=== PATIENT | female | born 1945 | race Caucasian/White ===

== ENCOUNTER 2016-03-28 08:57 | Day surgery (SDC) | payer MEDICARE, BC ==
[2016-03-28] VITALS (11 sets, daily range): BP systolic 131–163; BP diastolic 51–73; PULSE 58–70; RESP 16–28; Ht 167.6 cm; Wt 81.7 kg
[~2016-03-28] VITALS: Ht 167.6 cm; Wt 81.7 kg
[~2016-03-28 08:57] MED LIST: AMLO-147 PO; ASPI81TA3 PO; CHOL100062 PO; FOLI-49 PO; FURO20TA3 PO; GABA100C14 PO; LEVO500V2 PO; LISI10TA2 PO; PANT40TA4 PO; PIOG45TA6 PO; SEVE800T7 PO; SUCR1TAB56 PO
[2016-03-28 10:26] LABS: BASOPHILS % 0.7 % (0.0-2.0); EOSINOPHILS # 0.3 10^3/ul (0.0-0.5); EOSINOPHILS % 4.6 % (0.0-7.0); HEMATOCRIT 36.4 % (37.0-47.0); HEMOGLOBIN 12.1 g/dl (12.0-16.0); LYMPHOCYTES # 0.8 10^3/ul (0.8-2.9); LYMPHOCYTES % 13.7 % (15.0-51.0); MEAN CORPUSCULAR HEMOGLOBIN 31.7 pg (29.0-33.0); MEAN CORPUSCULAR HGB CONC 33.2 g/dl (32.0-37.0); MEAN CORPUSCULAR VOLUME 95.3 fl (82.0-101.0); MEAN PLATELET VOLUME 9.4 fl (7.4-10.4); MONOCYTE # 0.4 10^3/ul (0.3-0.9); MONOCYTES % 6.4 % (0.0-11.0); NEUTROPHIL # 4.4 10^3/ul (1.6-7.5); NEUTROPHILS % 74.6 % (39.0-77.0); PLATELET COUNT 206 10^3/UL (140-440); RED BLOOD COUNT 3.82 10^6/ul (4.20-5.40); RED CELL DISTRIBUTION WIDTH 15.2 % (11.5-14.5); UNCORRECTED WBC 5.8 10^3/ul (4.8-10.8); WHITE BLOOD COUNT 5.8 10^3/ul (4.8-10.8)
[2016-03-28 10:30] LABS: INR 0.94; PROTIME 12.6 Sec (12.2-14.2)
[2016-03-28 10:31] LABS: CONDITION 1; LH ANALYZER COMMENTS 1
[2016-03-28 10:45] LABS: CALCIUM 9.8 mg/dl (8.4-10.2); CREATININE 4.91 mg/dl (0.44-1.00); POTASSIUM 3.9 mmol/L (3.5-5.1)
[2016-03-28 10:54] LABS: PARTIAL THROMBOPLASTIN TIME 23.8 Sec (25.0-35.0)
[2016-03-28] MEDS ORDERED: HEPARIN 1000 UNITS/ML 10 ML INJ ONE (12:03)
[2016-03-28] MEDS ORDERED: MIDAZOLAM 1 MG/ML 2 ML INJ ONE (12:03)
[2016-03-28] MEDS ORDERED: LIDOCAINE 1% (MDV) 20 ML INJ ONE (12:03)
[2016-03-28] MEDS ORDERED: HEPARIN 1000 UNITS/NS (A-LINE) 1,000 ML ONE (12:03)
[2016-03-28] MEDS ORDERED: VERAPAMIL 5 MG INJ ONE (12:04)
[2016-03-28] MEDS ORDERED: NITROGLYCERIN (IC) 100 MCG/ML INJ ONE (12:04)
[2016-03-28] MEDS ORDERED: FENTAnyl 50 MCG/ML VIAL ONE (12:04)
[2016-03-28] MEDS ORDERED: IODIXANOL LOCM 100 ML BTL ONE (12:12)
[2016-03-28] MEDS ORDERED: ADENOSINE 90 MG in SOD CHLORIDE 0.9% 90 ML IV SCH (13:00)
--- NOTE | 2016-03-28 14:05 | PDOCDIS ---
Discharge Instructions CONDITION Patient Condition: Good HOME CARE INSTRUCTIONS: Diet Instructions: Low Fat /Cholesterol ACTIVITY: Activity Restrictions: Avoid heavy lifting Avoid Heavy Housework Activity Restrictions Comment: No driving x 1 day, no lifting more then 5 pounds with left arm x 3 days Gregory Arauz DO Mar 28, 2016 14:05
[2016-03-28] MEDS ORDERED: ACETAMINOPHEN 325 MG TAB PO PRN (14:30)
[2016-03-28] MEDS ORDERED: LIDOCAINE 5% PATCH TRANSDERM ONE (16:30)
--- NOTE | 2016-03-28 18:49 | CARRPT ---
DATE OF PROCEDURE: 03/28/2016 PROCEDURES: 1. Left heart catheterization. 2. Right and left coronary angiogram. 3. Interpretation and supervision of coronary angiogram. 4. Left ventricular pressure measurements. 5. Fractional flow reserve of the mid left anterior descending. 6. Distal abdominal aortogram and bilateral aortoiliac angiogram. INDICATIONS: This patient presents for cardiac catheterization as well as abdominal aortogram secon emily to preoperative for kidney transplant. FINDINGS: HEMODYNAMICS: 1. LV pressure was 127/-3 with EDP of 17. 2. Aortic was 126/49. 3. FFR was 0.81. CORONARY ANATOMY: 1. RCA is a medium caliber vessel and is dominant. There is an ostial 20% stenosis and a distal 20 % diffuse stenosis. 2. Left main is a large caliber vessel with no significant disease. 3. Circumflex is a medium caliber vessel. There is a mid 20% stenosis and a distal 10% stenosis. 4. LAD is a medium caliber vessel. Proximally there is diffuse calcification with 30% stenosis. A fter the bifurcation of a medium caliber diagonal, the mid LAD has a 50% to 60% stenosis and distal 10% stenosis. 5. The mid aorta in the abdomen demonstrates no significant disease. DESCRIPTION OF PROCEDURE: There is no evidence of severe stenosis in the abdominal aorta, the bilat eral iliacs as well as bilateral common femoral arteries. The patient was brought to the laboratory miller a fter informed consent. The patient was prepped and draped as per protocol. Right radial artery acc ess was obtained and a 5/6 Armenian sheath was placed in the right radial artery. This 5-Armenian JR4 c atheter was used to enter the left ventricle. Pressure measurements were obtained as well as pullba ck. The RCA angiogram was performed. We next used a 5-Armenian JL3.5 diagnostic catheter and left ma in angiogram was performed. Given the moderate disease noted in the mid LAD, decided to proceed wit h FFR. Heparin was used for anticoagulation. We used a 6-Armenian XB 3.5 guide catheter. We engaged the left main. Next, used a [facility] FFR wire to cross area of stenosis. Adenosine was given in travenously. The lowest reading was 0.81. Afterwards we next used a 6-Armenian pigtail to go in the descending aorta. Then abdominal aortogram as well as aortoiliac angiogram with a 6-Armenian pigtail. There were no immediate complications. All wires and catheters were removed. DIAGNOSIS: Coronary artery disease, moderate. COMPLICATIONS: No significant aortoiliac disease. COMPLICATIONS: None. ESTIMATED BLOOD LOSS: Minimal. RECOMMENDATIONS: Aggressive medical management. The patient is asymptomatic in regards to coronary artery disease. No need for coronary intervention at the current time. Dictated By: NADEEM FERRELL/VASILE Conf#: [id number] DID#: [id number]
== END 2016-03-28 17:30 | disposition home or self-care (01) ==
LOC: SDS 08:57
PROVIDERS: ATTEND Internal Medicine Cardiovascular Disease
DX: I25.10 Atherosclerotic heart disease of native coronary artery without angina pectoris (principal)
CPT/HCPCS: 75625; 80048; 82962; 85025; 85610; 85730; 93458; 93571; C1769; C1887; J0153; J1644; J2250; J3010; Q9967

== ENCOUNTER 2016-05-20 07:26 | Day surgery (SDC) | payer MEDICARE, BC ==
[2016-05-20] VITALS (12 sets, daily range): BP systolic 138–167; BP diastolic 62–84; PULSE 58–80; RESP 15–22; Ht 167.6 cm; Wt 80.1 kg
[~2016-05-20] VITALS: Ht 167.6 cm; Wt 80.1 kg
[2016-05-20] MEDS ORDERED: LIDOCAINE 1% (MPF) 30 ML INJ ONE ×2 (09:27→10:21)
[2016-05-20] MEDS ORDERED: GELATIN SIZE 100 SPONGE ONE (09:27)
[2016-05-20] MEDS ORDERED: HEPARIN 1000 UNITS/ML 10 ML INJ ONE ×2 (09:27→11:07)
[2016-05-20] MEDS ORDERED: THROMBIN 5000 UNIT VIAL ONE (09:28)
--- NOTE | 2016-05-20 09:33 | RADRPT ---
PROCEDURE: XR Chest. CLINICAL INDICATION: Preoperative. TECHNIQUE: Single frontal view. COMPARISON: 01/28/2016. FINDINGS: There is a tunneled right internal jugular vein dialysis catheter with the tip in the upper right at rium. There is mild atelectasis at the lung bases. The lungs are otherwise clear. The heart size is normal. There is calcification in the aorta consistent with atherosclerosis. There is no pleural effusion. There is no pneumothorax. IMPRESSION: 1. Dialysis catheter in satisfactory position. 2. Mild atelectasis at the lung bases. 3. Atherosclerosis. RPTAT: QQ .Diego Serrano MD, MD Date Time Electronically viewed and signed by .Diego Serrano MD, on 05/20/2016 09:33 .R/
[2016-05-20 09:35] LABS: ADD SCAN DIFF NO
[2016-05-20 09:39] LABS: BASOPHIL # 0.1 10^3/ul (0.0-0.1); EOSINOPHILS # 0.3 10^3/ul (0.0-0.5); EOSINOPHILS % 5.9 % (0.0-7.0); HEMATOCRIT 35.3 % (37.0-47.0); HEMOGLOBIN 10.7 g/dl (12.0-16.0); LYMPHOCYTES # 0.9 10^3/ul (0.8-2.9); LYMPHOCYTES % 16.1 % (15.0-51.0); MEAN CORPUSCULAR HEMOGLOBIN 30.1 pg (29.0-33.0); MEAN CORPUSCULAR HGB CONC 30.3 g/dl (32.0-37.0); MEAN CORPUSCULAR VOLUME 99.4 fl (82.0-101.0); MEAN PLATELET VOLUME 11.1 fl (7.4-10.4); MONOCYTE # 0.6 10^3/ul (0.3-0.9); MONOCYTES % 9.7 % (0.0-11.0); NEUTROPHIL # 3.9 10^3/ul (1.6-7.5); PLATELET COUNT 176 10^3/UL (140-415); RED BLOOD COUNT 3.55 10^6/ul (4.20-5.40); RED CELL DISTRIBUTION WIDTH 13.3 % (11.5-14.5); WHITE BLOOD COUNT 5.8 10^3/ul (4.8-10.8)
[2016-05-20 09:49] LABS: INR 0.93; PROTIME 12.5 Sec (12.2-14.2)
[2016-05-20 09:50] LABS: PARTIAL THROMBOPLASTIN TIME 28.7 Sec (25.0-35.0)
[2016-05-20 09:52] LABS: ALBUMIN 3.4 g/dl (3.3-4.9); ALBUMIN/GLOBULIN RATIO 1.21; TOTAL PROTEIN 6.2 g/dl (6.1-8.1)
[2016-05-20 09:53] LABS: POTASSIUM 4.4 mmol/L (3.5-5.1)
[2016-05-20] MEDS ORDERED: SUCCINYLCHOLINE CHLORIDE 100 MG/5 ML SYG IV ONE (09:53)
[2016-05-20] MEDS ORDERED: FENTAnyl 50 MCG/ML VIAL ONE (09:53)
[2016-05-20] MEDS ORDERED: ONDANSETRON 4 MG INJ ONE (09:53)
[2016-05-20] MEDS ORDERED: ROCURONIUM 50 MG INJ ONE (09:53)
[2016-05-20] MEDS ORDERED: PROPOFOL 20 ML ONE (09:53)
[2016-05-20] MEDS ORDERED: METOCLOPRAMIDE 10 MG INJ ONE (09:54)
[2016-05-20 09:55] LABS: CALCIUM 9.7 mg/dl (8.4-10.2); CREATININE 3.85 mg/dl (0.44-1.00)
[2016-05-20] MEDS ORDERED: CEFAZOLIN 1 GM INJ ONE (09:57)
[2016-05-20] MEDS ORDERED: FENTAnyl 50 MCG/ML VIAL IV PRN ×2 (11:00)
[2016-05-20] MEDS ORDERED: MEPERIDINE 25 MG INJ IV PRN (11:00)
[2016-05-20] MEDS ORDERED: ONDANSETRON 4 MG INJ IV PRN (11:00)
[2016-05-20] MEDS ORDERED: LABETALOL HCL 20MG INJ IV PRN (11:00)
[2016-05-20] MEDS ORDERED: hydrALAzine 20 MG INJ IV PRN (11:00)
[2016-05-20] MEDS ORDERED: HYDROmorphONE (0.2 MG/ML) 10ML SYG IV PRN ×3 (11:00)
--- NOTE | 2016-05-20 21:02 | RADRPT ---
Vent Rate: 53 bpm RR Interval: 0 msec MD Interval: 186 msec QRS Duration: 82 msec QT Interval: 428 msec QTC Interval: 401 msec P-R-T [place]: 30 - 26 - 29 degrees Sinus bradycardia Low voltage QRS Borderline ECG Electronically Signed By: Rustam Salter [id number]
--- NOTE | 2016-05-20 21:20 | OPR ---
DATE OF OPERATION: PREOPERATIVE DIAGNOSIS: Renal failure. POSTOPERATIVE DIAGNOSIS: Renal failure. OPERATION PERFORMED: Left arm AV fistula. SURGEON: An Pardo MD ANESTHESIA: General. CONSENT: Risks, benefits, complications, alternative therapies explained to the patient and the valerie reina, consent obtained. OPERATIVE TECHNIQUE: The patient was placed in supine position, prepped and draped in usual sterile fashion. I made a 4 cm incision in left arm just distal to the antecubital fossa. Incision was ta nai down to subcutaneous tissue which was then opened using electrocautery. The basilic vein and th e brachial artery were identified. Vesseloops were passed around it. The basilic vein was then tra nsected distally and anastomosed to the brachial artery in an end-to-side fashion after giving the p atient 5000 units of IV heparin. The wound was then irrigated and closed in 2 layers of 3-0 Vicryl suture in running and subcuticular skin closure. The patient had a strong thrill and a bruit over t he newly constructed graft. No signs of ischemia. Tolerated procedure well. Dictated By: AN PARDO MD FM/NTS Conf#: [id number] DID#: [id number] CC: AN PARDO MD;*EndCC*
== END 2016-05-20 13:00 | disposition home or self-care (01) ==
LOC: SDS 07:26
PROVIDERS: ATTEND Thoracic Surgery (Cardiothoracic Vascular Surgery)
DX: E11.22 Type 2 diabetes mellitus with diabetic chronic kidney disease (principal); I12.0 Hypertensive chronic kidney disease with stage 5 chronic kidney disease or end stage renal disease; N18.6 End stage renal disease
CPT/HCPCS: 36821; 71010; 80053; 82962; 85025; 85610; 85730; 93005; J0330; J0690; J1644; J2405; J2765; J3010

== ENCOUNTER 2016-12-20 10:29 | Day surgery (SDC) | payer MEDICARE, BC ==
[~2016-12-20] VITALS: Ht 167.6 cm; Wt 78.0 kg
[2016-12-20] VITALS (9 sets, daily range): BP systolic 119–141; BP diastolic 48–72; PULSE 65–77; RESP 13–25; Ht 167.6 cm; Wt 78.0 kg
[~2016-12-20 10:29] MED LIST changes: +CLINDAMYCIN 600 MG/50 ML D5W IVPB IVPB ONE
[2016-12-20] MEDS ORDERED: LEVO50TA71 PO (11:38)
[2016-12-20] MEDS ORDERED: BUPIVACAINE 0.25% (MPF) 30 ML INJ ONE (12:01)
[2016-12-20] MEDS ORDERED: LIDOCAINE 1% (MPF) 30 ML INJ ONE (12:01)
[2016-12-20] MEDS ORDERED: GELATIN SIZE 100 SPONGE ONE (12:01)
[2016-12-20] MEDS ORDERED: HEPARIN 1000 UNITS/ML 10 ML INJ ONE ×2 (12:02→13:50)
[2016-12-20] MEDS ORDERED: POLYMYXIN/BACITRACIN 1L IRRIG ONE (12:02)
[2016-12-20] MEDS ORDERED: THROMBIN 5000 UNIT VIAL ONE (12:02)
--- NOTE | 2016-12-20 12:09 | RADRPT ---
PROCEDURE: XR Chest. CLINICAL INDICATION: Shortness of breath TECHNIQUE: Single portable view of the chest was obtained COMPARISON: January 28, 2016 FINDINGS: The trachea is midline. The cardiac silhouette and pulmonary vascularity are within normal limits. T he lungs are clear. The costophrenic angles are sharp. A right sided PermCath is noted with distal t ip in the SVC. Atherosclerotic calcification of the aortic knob is noted. IMPRESSION: 1. Right sided PermCath in satisfactory position. 2. Atherosclerosis of the aorta. No acute cardiopulmonary disease. No change since prior study. RPTAT: AAPP Physician Samm Date Time Electronically viewed and signed by Mallorie Hernandez Physician on 12/20/2016 12:08 JL/
[2016-12-20 12:16] LABS: BASOPHIL # 0.1 10^3/ul (0.0-0.1); BASOPHILS % 1.1 % (0.0-2.0); EOSINOPHILS # 0.1 10^3/ul (0.0-0.5); EOSINOPHILS % 2.1 % (0.0-7.0); HEMATOCRIT 30.9 % (37.0-47.0); HEMOGLOBIN 9.2 g/dl (12.0-16.0); LYMPHOCYTES # 0.7 10^3/ul (0.8-2.9); MEAN CORPUSCULAR HEMOGLOBIN 30.8 pg (29.0-33.0); MEAN CORPUSCULAR HGB CONC 29.8 g/dl (32.0-37.0); MEAN CORPUSCULAR VOLUME 103.3 fl (82.0-101.0); MEAN PLATELET VOLUME 9.7 fl (7.4-10.4); MONOCYTE # 0.4 10^3/ul (0.3-0.9); MONOCYTES % 7.9 % (0.0-11.0); NEUTROPHIL # 3.5 10^3/ul (1.6-7.5); NEUTROPHILS % 74.5 % (39.0-77.0); PLATELET COUNT 238 10^3/UL (140-415); RED BLOOD COUNT 2.99 10^6/ul (4.20-5.40); RED CELL DISTRIBUTION WIDTH 16.1 % (11.5-14.5); WHITE BLOOD COUNT 4.7 10^3/ul (4.8-10.8)
[2016-12-20 12:19] LABS: HOLD TRANSMISSIONS 1
[2016-12-20] MEDS ORDERED: ROPIVACAINE 0.5 % 30 ML VIAL ONE (12:27)
[2016-12-20] MEDS ORDERED: MIDAZOLAM 1 MG/ML 2 ML INJ ONE (12:27)
[2016-12-20] MEDS ORDERED: FENTAnyl 50 MCG/ML VIAL ONE (12:27)
[2016-12-20 12:36] LABS: INR 0.93; PROTIME 12.5 Sec (12.2-14.2)
[2016-12-20 12:37] LABS: PARTIAL THROMBOPLASTIN TIME 27.3 Sec (25.0-35.0)
[2016-12-20 12:41] LABS: ADD UMIC YES; UR ASCORBIC ACID NEGATIVE (NEGATIVE); UR BACTERIA FEW /HPF (NONE SEEN); UR BILIRUBIN (Dip) NEGATIVE (NEGATIVE); UR BLOOD (Dip) 1+ mg/dL (NEGATIVE); UR CLARITY CLOUDY (CLEAR); UR COLOR YELLOW (YELLOW); UR GLUCOSE (Dip) NEGATIVE (NEGATIVE); UR KETONES (Dip) NEGATIVE (NEGATIVE); UR LEUKOCYTE ESTERASE (Dip) 3+ Leu/ul (NEGATIVE); UR NITRITE (Dip) NEGATIVE (NEGATIVE); UR RBC 10 /HPF (0-5); UR SPECIFIC GRAVITY (Dip) 1.004 (1.003-1.030); UR SQUAMOUS EPITHELIAL CELL FEW /HPF (FEW); UR TOTAL PROTEIN (Dip) 1+ mg/dl (NEGATIVE); UR UROBILINOGEN (Dip) NEGATIVE (NEGATIVE)
[2016-12-20 12:50] LABS: CALCIUM 9.5 mg/dl (8.4-10.2); CREATININE 2.64 mg/dl (0.44-1.00); POTASSIUM 4.7 mmol/L (3.5-5.1)
[2016-12-20] MEDS ORDERED: METOCLOPRAMIDE 10 MG INJ IV PRN ×2 (13:00)
[2016-12-20] MEDS ORDERED: DIPHENHYDRAMINE 50 MG INJ IV PRN ×2 (13:00)
[2016-12-20] MEDS ORDERED: MEPERIDINE 25 MG INJ IV PRN ×2 (13:00)
[2016-12-20] MEDS ORDERED: ONDANSETRON 4 MG INJ IV PRN ×2 (13:00)
[2016-12-20] MEDS ORDERED: morphine (1 MG/ML) 10ML SYRINGE IV PRN ×6 (13:00)
[2016-12-20] MEDS ORDERED: OXYCODONE/ACETAMINOPHEN (5/325) TAB PO PRN ×4 (13:00)
[2016-12-20] MEDS ORDERED: EPHEDrine SULFATE 50 MG/5 ML SYG IV PRN ×2 (13:00)
[2016-12-20] MEDS ORDERED: LABETALOL HCL 20MG INJ IV PRN ×2 (13:00)
[2016-12-20] MEDS ORDERED: KETOROLAC 30 MG INJ IV PRN ×2 (13:00)
[2016-12-20] MEDS ORDERED: MIDAZOLAM 1 MG/ML 2 ML INJ IV PRN ×2 (13:00)
[2016-12-20] MEDS ORDERED: hydrALAzine 20 MG INJ IV PRN ×2 (13:00)
[2016-12-20] MEDS ORDERED: LIDOCAINE 2% (SDV) 5 ML INJ ONE (14:16)
[2016-12-20] MEDS ORDERED: PROPOFOL 100 ML ONE (14:16)
--- NOTE | 2016-12-20 14:26 | OPR ---
Date/Time of Note Date/Time of Note DATE: 12/20/16 TIME: 14:24 Operative Report Procedure Date: Dec 20, 2016 Preoperative Diagnosis ESRD Postoperative Diagnosis same Surgeon see signature line Electronics Assembler none Anesthesia Type: other Estimated Blood Loss: minimal Transfusion none Specimen no Grafts/Implants none Complications none Procedure Description Dictated AN ROSADO MD Dec 20, 2016 14:26
--- NOTE | 2016-12-20 21:50 | RADRPT ---
Vent Rate: 61 bpm RR Interval: 0 msec CA Interval: 180 msec QRS Duration: 78 msec QT Interval: 412 msec QTC Interval: 414 msec P-R-T [place]: 20 - 20 - 19 degrees Normal sinus rhythm Normal ECG Electronically Signed By: Gregory Arauz [id number]
--- NOTE | 2016-12-20 22:14 | OPR ---
DATE OF OPERATION: PREOPERATIVE DIAGNOSIS: End-stage renal disease. POSTOPERATIVE DIAGNOSIS: End-stage renal disease. PROCEDURE: Left arm arteriovenous fistula, basilic vein transposition. SURGEON: An Pardo MD ANESTHESIA: Block. OPERATIVE TECHNIQUE: The patient was placed in supine position, prepped and draped in usual sterile fashion. Timeout was called. I made two 8 cm incisions in the medial aspect of the left arm. Inc ision was taken down to subcutaneous tissue. Basilic vein was identified. All of the tributaries w ere transected and ligated using 4-0 silk sutures. It was then transected at the brachial artery an astomosis in a lateral subcutaneous fashion and reanastomosed back in an end-to-end fashion, 6 -0 Prolene continuous suture technique. All wounds were then irrigated and closed in 2 layers of 3- 0 Vicryl suture in running and subcuticular skin closure. The patient tolerated the procedure well. Dictated By: AN FITCH/VASILE Conf#: [id number] DID#: [id number]
== END 2016-12-20 16:24 | disposition home or self-care (01) ==
LOC: SDS 10:29
PROVIDERS: ATTEND Thoracic Surgery (Cardiothoracic Vascular Surgery)
DX: Z45.2 Encounter for adjustment and management of vascular access device (principal); N18.6 End stage renal disease; I12.0 Hypertensive chronic kidney disease with stage 5 chronic kidney disease or end stage renal disease; E11.22 Type 2 diabetes mellitus with diabetic chronic kidney disease
CPT/HCPCS: 36819; 71010; 80048; 81001; 82962; 85025; 85610; 85730; 93005; C1725; J1644; J2250; J2795; J3010

== ENCOUNTER 2017-01-02 21:18 | Observation (INO) | payer MEDICARE, BC ==
[~2017-01-02] VITALS: Ht 167.6 cm; Wt 73.4 kg
[~2017-01-02 21:18] MED LIST changes: -CLINDAMYCIN 600 MG/50 ML D5W IVPB IVPB ONE; -LEVO500V2 PO; +LEVO50TA71 PO
[2017-01-03 02:59] LABS: BASOPHILS % 0.6 % (0.0-2.0); EOSINOPHILS # 0.1 10^3/ul (0.0-0.5); EOSINOPHILS % 1.7 % (0.0-7.0); HEMATOCRIT 32.5 % (37.0-47.0); HEMOGLOBIN 9.7 g/dl (12.0-16.0); LYMPHOCYTES # 0.8 10^3/ul (0.8-2.9); LYMPHOCYTES % 11.7 % (15.0-51.0); MEAN CORPUSCULAR HEMOGLOBIN 31.2 pg (29.0-33.0); MEAN CORPUSCULAR HGB CONC 29.8 g/dl (32.0-37.0); MEAN CORPUSCULAR VOLUME 104.5 fl (82.0-101.0); MEAN PLATELET VOLUME 9.5 fl (7.4-10.4); MONOCYTE # 0.5 10^3/ul (0.3-0.9); MONOCYTES % 6.4 % (0.0-11.0); NEUTROPHIL # 5.7 10^3/ul (1.6-7.5); NEUTROPHILS % 78.8 % (39.0-77.0); PLATELET COUNT 361 10^3/UL (140-415); RED BLOOD COUNT 3.11 10^6/ul (4.20-5.40); RED CELL DISTRIBUTION WIDTH 16.2 % (11.5-14.5); WHITE BLOOD COUNT 7.2 10^3/ul (4.8-10.8)
[2017-01-03 03:20] LABS: INR 0.97; PROTIME 12.9 Sec (12.2-14.2)
[2017-01-03 03:23] LABS: CALCIUM 9.5 mg/dl (8.4-10.2); CREATININE 2.03 mg/dl (0.44-1.00); POTASSIUM 4.4 mmol/L (3.5-5.1)
[2017-01-03 04:02] LABS: PARTIAL THROMBOPLASTIN TIME 28.6 Sec (25.0-35.0)
[2017-01-03] MEDS ORDERED: ACETAMINOPHEN 325 MG TAB ONE (05:57)
[2017-01-03] MEDS ORDERED: ACETAMINOPHEN 325 MG TAB PO ONE (06:00)
[2017-01-03] MEDS ORDERED: morphine 4 MG/ML VIAL IV STA (06:18)
[2017-01-03 11:00] VITALS: TEMP 98
[2017-01-03 11:30] VITALS: Ht 167.6 cm; Wt 73.4 kg
[2017-01-03 11:32] VITALS: BP 133/61; PULSE 66; RESP 18
[2017-01-03] MEDS: AMLODIPINE 10 MG TAB PO SCH (14:00)
[2017-01-03] MEDS: FUROSEMIDE 20 MG TAB PO SCH (14:00)
[2017-01-03] MEDS ORDERED: HYDROCODONE/APAP (5/325) TAB PO PRN (14:00)
[2017-01-03] MEDS ORDERED: GLUCOSE GEL 15 GRAM TUBE PO PRN ×4 (14:30→17:30)
[2017-01-03] MEDS ORDERED: DEXTROSE 50% 50 ML SYRINGE IV PRN ×4 (14:30→17:30)
[2017-01-03] MEDS ORDERED: GLUCOSE GEL 15 GRAM TUBE BUCCAL PRN ×2 (14:30→17:30)
[2017-01-03] MEDS ORDERED: GLUCAGON 1 MG INJ IM PRN ×2 (14:30→17:30)
[2017-01-03 17:00] VITALS: BP 137/60; PULSE 75; RESP 18
[2017-01-03] MEDS: SUCRALFATE 1 GM TAB PO SCH ×2 (17:41→23:22)
[2017-01-03] MEDS: SEVELAMER CARBONATE 0.8 GM PKT PO SCH (17:41)
[2017-01-03] MEDS: ACCU-CHEK XX SCH ×2 (17:41→23:24)
[2017-01-03] MEDS: INSULIN ASPART [NOVOLOG] 3 ML PEN SC SCH ×2 (17:49→23:24)
--- NOTE | 2017-01-03 18:24 | QN ---
Documentation Comment [id number] CAROL SMART MD Jan 03, 2017 18:24
[2017-01-03] MEDS ORDERED: ACETAMINOPHEN 325 MG TAB PO PRN (18:30)
[2017-01-03] MEDS ORDERED: DOCUSATE SODIUM 100 MG CAP PO PRN (18:30)
[2017-01-03] MEDS ORDERED: ONDANSETRON 4 MG INJ IV PRN (18:30)
[2017-01-03] MEDS ORDERED: BISACODYL (EC) 5 MG TAB PO PRN (18:30)
[2017-01-03] MEDS ORDERED: NACL 0.9% 3 ML SYG IV SCH (18:30)
--- NOTE | 2017-01-03 19:37 | HP ---
DATE OF ADMISSION: 01/03/2017 HISTORY OF PRESENT ILLNESS: Chantelle Mead is a 71-year-old female. The patient has a left arm arteriovenous fistula, basilic vein transposition done. The patient noted to have bleeding from the AV fistula site and was sent in from the dialysis center. The patient has also pain and swelling of the left upper extremity. Dr. Pardo has been paged to see Mrs. Chantelle Mead in consultation. The patient also underwent hemodialysis at the dialysis center. PAST MEDICAL HISTORY: Positive for ESRD, hypertension, diabetes mellitus, diabetic nephropathy, retinopathy, neuropathy. The patient has a left arm AV fistula done. The patient's other past medical history includes left heart cath on 03/28/2016, right and left coronary angiogram, interrogation and supervision of coronary angiogram, left ventricular pressure measurement. The patient has RCA that is a medium caliber vessel and is dominant. There is ostial 20% stenosis and distal 20% diffuse stenosis. Left main is a large caliber vessel with no significant disease. Circumflex is a medium caliber vessel with mid 20% stenosis and distal 10% stenosis. LAD is a medium caliber vessel. Proximally, there is diffuse calcification with 30% stenosis. Mid LAD has 50% to 60% stenosis and distal 10% stenosis. The patient has a history of ligation of the left arm AV fistula. The patient also has had left forearm cephalic vein fistula placement in the past. The patient has a history of anemia. The patient has a history of dyslipidemia, history of gastric bypass surgery, history of lower extremity diabetic neuropathy. ALLERGIES: 1. PENICILLIN. 2. SULFA. 3. ROFECOXIB. SOCIAL HISTORY: Negative. MEDICATION HISTORY: The patient's home medicines have been: 1. Amlodipine. 2. Aspirin. 3. Vitamin D3. 4. Folic acid. 5. Lasix. 6. Gabapentin. 7. Levothyroxine. 8. Lisinopril. 9. Protonix. 10. Actos. 11. Renvela. 12. Carafate. REVIEW OF SYSTEMS: HEENT: Unremarkable. RESPIRATORY: Unremarkable. CARDIOVASCULAR: Unremarkable. ABDOMEN: Unremarkable. EXTREMITIES: As mentioned above. CENTRAL NERVOUS SYSTEM: Unremarkable. PHYSICAL EXAMINATION: GENERAL: The patient is awake and alert. VITAL SIGNS: Pulse 72, blood pressure 130/70. HEENT: Head is atraumatic, normocephalic. Pupils equal, reactive to light. NECK: Supple. There is no JVD. LUNGS: Clear. CARDIOVASCULAR: S1, S2 normal. ABDOMEN: Soft, nontender. Bowel sounds present. No palpable mass or hepatosplenomegaly. No guarding, rebound tenderness. EXTREMITIES: No cyanosis, clubbing. Edema positive lower extremity. AV fistula in left upper extremity is working fine with edema of the left upper extremity, and the patient has a dressing noted on the left upper extremity and no active bleeding noted. LABORATORY DATA: Hematocrit 32.5. The patient's sodium is 141, potassium 4.4. IMPRESSION: 1. Arteriovenous fistula bleeding, stopped. 2. End-stage renal disease. 3. Diabetes mellitus. 4. The patient with anemia. 5. Arteriovenous fistula, status post left arm arteriovenous fistula basilic vein transposition. PLAN: Obtain vascular surgical consultation. Continue home medications. Hemodialysis in the morning. Bleeding: The patient will have DDAVP. Aspirin is going to be on hold for the time being. Dictated By: CAROL SMART MD BS/NTS Conf#: [id number] DID#: [id number] CC: CAROL SMART MD;*EndCC* MTDD
--- NOTE | 2017-01-03 20:38 | CONS ---
DATE OF ADMISSION: 01/03/2017 DATE OF CONSULTATION: 01/03/2017 REASON FOR CONSULTATION: Evaluation of bleeding left arm. HISTORY OF PRESENT ILLNESS: This is a patient known to me. A 71-year-old female currently on dialy sis per a catheter. Patient has had a recent left arm arteriovenous fistula placement and was found to have bleeding from the medial aspect of the fistula, admitted through the emergency room. So fa r the dressing has been seeping with some serosanguineous fluid which does not appear to be purulent . Her hemoglobin is 7. Her previous hemoglobin 2 weeks ago was 9.2. PAST MEDICAL HISTORY: Significant for hypertension, hyperlipidemia, end-stage renal disease. ALLERGIES: 1. PENICILLIN. 2. SULFA. MEDICATIONS: List reviewed. REVIEW OF SYSTEMS: GASTROINTESTINAL: No upper or lower GI bleeding, nausea, vomiting, constipation, diarrhea. GENITOURINARY: No hematuria or dysuria. SKIN: No skin changes, rashes, or moles. PHYSICAL EXAMINATION: VITAL SIGNS: Blood pressure is 137/60, pulse 75, respirations 18, saturations 97% on room air, temp erature is 98. CARDIOVASCULAR: Normal S1, S2. No murmurs, gallops or rubs. LUNGS: Clear. ABDOMEN: Soft. EXTREMITIES: Warm. Left arm is examined. Fistula is intact with palpable thrill and a bruit. No signs of active bleeding, but some oozing from the medial aspect of the fistula. IMPRESSION: Left arm bleeding. RECOMMENDATIONS: We will proceed with exploration of the wound, control of bleeding. Discussed wit h the patient. All questions answered. Dictated By: AN ROSADO MD FM/VASILE Conf#: [id number] DID#: [id number] CC: CAROL SMART MD;*EndCC*
[2017-01-03] MEDS ORDERED: PANTOPRAZOLE (EC) 40 MG TAB PO SCH (21:00)
[2017-01-03] MEDS: GABAPENTIN 100 MG CAP PO SCH (23:22)
[2017-01-03 23:45] VITALS: BP 124/56; PULSE 81; RESP 18
[2017-01-04] VITALS (28 sets, daily range): BP systolic 108–158; BP diastolic 37–72; PULSE 60–78; RESP 10–32
[2017-01-04] MEDS ORDERED: ACCU-CHEK XX SCH ×3 (02:00)
[2017-01-04] MEDS: ACCU-CHEK XX SCH ×5 (03:26→21:00)
[2017-01-04 05:59] LABS: BASOPHILS % 0.7 % (0.0-2.0); EOSINOPHILS # 0.1 10^3/ul (0.0-0.5); EOSINOPHILS % 1.7 % (0.0-7.0); HEMOGLOBIN 8.9 g/dl (12.0-16.0); LYMPHOCYTES # 0.9 10^3/ul (0.8-2.9); LYMPHOCYTES % 14.5 % (15.0-51.0); MEAN CORPUSCULAR HEMOGLOBIN 31.6 pg (29.0-33.0); MEAN CORPUSCULAR HGB CONC 29.7 g/dl (32.0-37.0); MEAN CORPUSCULAR VOLUME 106.4 fl (82.0-101.0); MEAN PLATELET VOLUME 10.3 fl (7.4-10.4); MONOCYTE # 0.4 10^3/ul (0.3-0.9); MONOCYTES % 7.5 % (0.0-11.0); NEUTROPHIL # 4.4 10^3/ul (1.6-7.5); NEUTROPHILS % 75.4 % (39.0-77.0); PLATELET COUNT 313 10^3/UL (140-415); RED BLOOD COUNT 2.82 10^6/ul (4.20-5.40); RED CELL DISTRIBUTION WIDTH 16.1 % (11.5-14.5); WHITE BLOOD COUNT 5.9 10^3/ul (4.8-10.8)
[2017-01-04 06:46] LABS: ALBUMIN 2.9 g/dl (3.3-4.9); ALBUMIN/GLOBULIN RATIO 1.03; CALCIUM 8.9 mg/dl (8.4-10.2); CREATININE 3.12 mg/dl (0.44-1.00); TOTAL PROTEIN 5.7 g/dl (6.1-8.1)
[2017-01-04] MEDS: PANTOPRAZOLE (EC) 40 MG TAB PO SCH (06:53)
[2017-01-04] MEDS: INSULIN ASPART [NOVOLOG] 3 ML PEN SC SCH ×4 (07:49→21:00)
[2017-01-04] MEDS: SEVELAMER CARBONATE 0.8 GM PKT PO SCH ×3 (08:00→17:35)
[2017-01-04] MEDS: LEVOTHYROXINE 50 MCG TAB PO SCH (08:00)
[2017-01-04] MEDS: SUCRALFATE 1 GM TAB PO SCH ×4 (08:00→21:00)
[2017-01-04] MEDS: FOLIC ACID 1 MG TAB PO SCH (08:46)
[2017-01-04] MEDS: PIOGLITAZONE 45 MG TAB PO SCH (08:46)
[2017-01-04] MEDS: GABAPENTIN 100 MG CAP PO SCH ×3 (08:46→21:00)
[2017-01-04] MEDS: FUROSEMIDE 20 MG TAB PO SCH (08:46)
[2017-01-04] MEDS: AMLODIPINE 10 MG TAB PO SCH (08:47)
[2017-01-04] MEDS: CHOLECALCIFEROL 1,000 UNIT TAB PO SCH (08:47)
[2017-01-04] MEDS: LISINOPRIL 10 MG TAB PO SCH (08:47)
--- NOTE | 2017-01-04 12:37 | PN ---
Date/Time of Note Date/Time of Note DATE: 01/04/17 TIME: 12:35 Assessment/Plan VTE Prophylaxis VTE Prophylaxis Intervention: other Lines/Catheters IV [facility] ([facility] [place] Urinary Cath still in place: No Assessment/Plan Chief Complaint/Hosp Course IMPRESSION: 1. Arteriovenous fistula bleeding, stopped. 2. End-stage renal disease. 3. Diabetes mellitus. 4. The patient with anemia. 5. Arteriovenous fistula, status post left arm arteriovenous fistula basilic vein transposition. 6 cad plan per surgery dr bang to see hx cad Problems: Subjective 24 Hr Interval Summary Cardiovascular: no complaints Gastrointestinal: no complaints Genitourinary: no complaints Exam/Review of Systems Vital Signs Vitals Vital Signs Date Time Temp Pulse Resp B/P Pulse Ox O2 Delivery O2 Flow Rate FiO2 01/04/17 07:21 99.2 75 18 112/57 97 Room Air Intake and Output 01/03/17 01/03/17 01/04/17 15:00 23:00 07:00 Intake Total 700 ml Balance 700 ml Exam Neck: supple Respiratory: clear to auscultation Cardiovascular: regular rate and rhythm Gastrointestinal: bowel sounds (+), soft Extremities: edema (+) Results Result Diagram: 01/04/17 0426 01/04/17 0426 Results 24 hrs Laboratory Tests Test 01/03/17 16:03 01/03/17 17:03 01/03/17 23:15 01/04/17 03:24 Bedside Glucose 66 L 153 163 71 Test 01/04/17 04:22 01/04/17 04:26 01/04/17 07:39 01/04/17 11:30 Bedside Glucose 226 H 153 86 White Blood Count 5.9 Red Blood Count 2.82 L Hemoglobin 8.9 L Hematocrit 30.0 L Mean Corpuscular Volume 106.4 H Mean Corpuscular Hemoglobin 31.6 Mean Corpuscular Hemoglobin Concent 29.7 L Red Cell Distribution Width 16.1 H Platelet Count 313 Mean Platelet Volume 10.3 Neutrophils % 75.4 Lymphocytes % 14.5 L Monocytes % 7.5 Eosinophils % 1.7 Basophils % 0.7 Nucleated Red Blood Cells % 0.0 Neutrophils # 4.4 Lymphocytes # 0.9 Monocytes # 0.4 Eosinophils # 0.1 Basophils # 0.0 Nucleated Red Blood Cells # 0.0 Sodium Level 139 Potassium Level 5.0 Chloride Level 104 Carbon Dioxide Level 26 Anion Gap 14 Blood Urea Nitrogen 28 #H Creatinine 3.12 #H Glucose Level 153 Calcium Level 8.9 Total Bilirubin 0.0 L Direct Bilirubin 0.00 Indirect Bilirubin 0.0 Aspartate Amino Transf (AST/SGOT) 32 Alanine Aminotransferase (ALT/SGPT) 26 Alkaline Phosphatase 125 H Total Protein 5.7 L Albumin 2.9 L Globulin 2.80 Albumin/Globulin Ratio 1.03 Medications Medications Current Medications Amlodipine Besylate (Norvasc) 10 mg DAILY PO ; Start 01/03/17 at 14:00 Cholecalciferol (Vitamin D) 1,000 unit DAILY PO ; Start 01/04/17 at 09:00 Folic Acid (Folic Acid) 1 mg DAILY PO ; Start 01/04/17 at 09:00 Furosemide (Lasix) 20 mg DAILY PO ; Start 01/03/17 at 14:00 Gabapentin (Neurontin) 100 mg TID PO Last administered on 01/03/17t 23:22; Admin Dose 100 MG; Start 01/03/17 at 21:00 Lisinopril (Zestril) 10 mg DAILY PO ; Start 01/04/17 at 09:00 Pioglitazone HCl (Actos) 45 mg DAILY PO ; Start 01/04/17 at 09:00 Acetaminophen/ Hydrocodone Bitart ([place] (5/325)) 1 tab Q6H PRN PO Pain; Start 01/03/17 at 14:00 Miscellaneous Information 1 ea NOTE XX ; Start 01/03/17 at 14:30 Glucose (Glutose) 15 gm Q15M PRN PO DECREASED GLUCOSE; Start 01/03/17 at 14:30 Glucose (Glutose) 22.5 gm Q15M PRN PO DECREASED GLUCOSE; Start 01/03/17 at 14: 30 Dextrose (D50w Syringe) 25 ml Q15M PRN IV DECREASED GLUCOSE; Start 01/03/17 at 14:30 Dextrose (D50w Syringe) 50 ml Q15M PRN IV DECREASED GLUCOSE; Start 01/03/17 at 14:30 Glucagon (Glucagen) 1 mg Q15M PRN IM DECREASED GLUCOSE; Start 01/03/17 at 14: 30 Glucose (Glutose) 15 gm Q15M PRN BUCCAL DECREASED GLUCOSE; Start 01/03/17 at 14:30 Diagnostic Test (Pha) (Accu-Chek) 1 ea 02 XX Last administered on 01/04/17 03 :26; Admin Dose 1 EA; Start 01/04/17 at 02:00 Miscellaneous Information 1 ea NOTE XX ; Start 01/03/17 at 17:30 Glucose (Glutose) 15 gm Q15M PRN PO DECREASED GLUCOSE; Start 01/03/17 at 17:30 Glucose (Glutose) 22.5 gm Q15M PRN PO DECREASED GLUCOSE; Start 01/03/17 at 17: 30 Dextrose (D50w Syringe) 25 ml Q15M PRN IV DECREASED GLUCOSE; Start 01/03/17 at 17:30 Dextrose (D50w Syringe) 50 ml Q15M PRN IV DECREASED GLUCOSE; Start 01/03/17 at 17:30 Glucagon (Glucagen) 1 mg Q15M PRN IM DECREASED GLUCOSE; Start 01/03/17 at 17: 30 Glucose (Glutose) 15 gm Q15M PRN BUCCAL DECREASED GLUCOSE; Start 01/03/17 at 17:30 Ondansetron HCl (Zofran Inj) 4 mg Q6H PRN IV NAUSEA AND/OR VOMITING; Start at 18:30 Acetaminophen (Tylenol Tab) 650 mg Q6H PRN PO PAIN LEVEL 1-3 OR FEVER; Start 01/03/17 at 18:30 Docusate Sodium (Colace) 100 mg Q12H PRN PO CONSTIPATION; Start 01/03/17 at 18 :30 Bisacodyl (Dulcolax) 5 mg DAILY PRN PO CONSTIPATION; Start 01/03/17 at 18:30 Pantoprazole 40 mg 40 mg DAILY@06 PO Last administered on 01/04/17 06:53; Admin Dose 40 MG; Start 01/04/17 at 06:00 Dextrose/Sodium Chloride (D5-1/2ns) 1,000 ml @ 30 mls/hr Q24H IV ; Start 01/04 at 13:00; Status CAROL CRUM MD Jan 04, 2017 12:37
[2017-01-04] MEDS: DEXTROSE 5%-0.45% NACL 1,000 ML IV SCH (13:51)
--- NOTE | 2017-01-04 17:32 | CONS ---
Date/Time of Note Date/Time of Note DATE: 01/04/17 TIME: 17:26 Assessment/Plan Assessment/Plan Additional Assessment/Plan Recent AV fistula placement with postoperative bleeding End-stage renal disease on hemodialysis Coronary artery disease Diabetes Hypertension Dyslipidemia -Patient is planned for reevaluation of AV fistula recently placed secondary to continual bleeding. Given her history, patient is at an intermediate risk for any untoward cardiac events for her procedure, the benefits likely outweigh the risks. No further studies are needed prior to procedure. Restart aspirin when okay by our surgical colleagues. Fluid management via hemodialysis as per our nephrology colleagues. Consultation Date/Type/Reason Admit Date/Time Jan 03, 2017 at 04:04 Type of Consultation: cv Reason for Consultation Cardiac evaluation with history of coronary artery disease Hx of Present Illness This is a 71-year-old female with past medical history of end-stage renal disease on hemodialysis, moderate coronary artery disease, diabetes resent secondary to bleeding recently placed AV fistula. Patient had surgery approximately a week and a half ago and has had continual oozing from the surgical site. She denies any chest discomfort or shortness of breath postoperatively. She does get occasional chest discomfort which happens randomly and is not exacerbated by activity. This goes across her chest. She did have a cardiac catheterization done in the past preoperatively for possible renal transplant which demonstrated moderate coronary artery disease in the LAD. 12 point review of systems was performed with all pertinent positives and negatives mentioned above and all else Past Medical History Medical History: coronary artery disease, diabetes, high cholesterol, hypertension, renal disease Past Surgical History HD catheter AV fistula Family History Significant Family History: no pertinent family hx Social History Smoking Status: Never smoker Exam/Review of Systems Vital Signs Vitals Vital Signs Date Time Temp Pulse Resp B/P Pulse Ox O2 Delivery O2 Flow Rate FiO2 01/04/17 16:00 65 14 01/04/17 07:21 99.2 112/57 97 Room Air Intake and Output 01/03/17 01/03/17 01/04/17 15:00 23:00 07:00 Intake Total 700 ml Balance 700 ml Exam nad, undergoing HD Constitutional: alert, oriented Head: normocephalic Respiratory: other (course bs, no wheeze) Cardiovascular: other (s1s2), regular rate and rhythm Gastrointestinal: bowel sounds, non-tender, soft Extremities: edema Results Result Diagram: 01/04/17 0426 01/04/17 0426 Results 24 hrs Laboratory Tests Test 01/03/17 23:15 01/04/17 03:24 01/04/17 04:22 01/04/17 04:26 Bedside Glucose 163 71 226 H White Blood Count 5.9 Red Blood Count 2.82 L Hemoglobin 8.9 L Hematocrit 30.0 L Mean Corpuscular Volume 106.4 H Mean Corpuscular Hemoglobin 31.6 Mean Corpuscular Hemoglobin Concent 29.7 L Red Cell Distribution Width 16.1 H Platelet Count 313 Mean Platelet Volume 10.3 Neutrophils % 75.4 Lymphocytes % 14.5 L Monocytes % 7.5 Eosinophils % 1.7 Basophils % 0.7 Nucleated Red Blood Cells % 0.0 Neutrophils # 4.4 Lymphocytes # 0.9 Monocytes # 0.4 Eosinophils # 0.1 Basophils # 0.0 Nucleated Red Blood Cells # 0.0 Sodium Level 139 Potassium Level 5.0 Chloride Level 104 Carbon Dioxide Level 26 Anion Gap 14 Blood Urea Nitrogen 28 #H Creatinine 3.12 #H Glucose Level 153 Calcium Level 8.9 Total Bilirubin 0.0 L Direct Bilirubin 0.00 Indirect Bilirubin 0.0 Aspartate Amino Transf (AST/SGOT) 32 Alanine Aminotransferase (ALT/SGPT) 26 Alkaline Phosphatase 125 H Total Protein 5.7 L Albumin 2.9 L Globulin 2.80 Albumin/Globulin Ratio 1.03 Test 01/04/17 07:39 01/04/17 11:30 Bedside Glucose 153 86 Medications Medications Current Medications Amlodipine Besylate (Norvasc) 10 mg DAILY PO ; Start 01/03/17 at 14:00 Cholecalciferol (Vitamin D) 1,000 unit DAILY PO ; Start 01/04/17 at 09:00 Folic Acid (Folic Acid) 1 mg DAILY PO ; Start 01/04/17 at 09:00 Furosemide (Lasix) 20 mg DAILY PO ; Start 01/03/17 at 14:00 Gabapentin (Neurontin) 100 mg TID PO Last administered on 01/03/17t 23:22; Admin Dose 100 MG; Start 01/03/17 at 21:00 Lisinopril (Zestril) 10 mg DAILY PO ; Start 01/04/17 at 09:00 Pioglitazone HCl (Actos) 45 mg DAILY PO ; Start 01/04/17 at 09:00 Acetaminophen/ Hydrocodone Bitart ([place] (5/325)) 1 tab Q6H PRN PO Pain; Start 01/03/17 at 14:00 Miscellaneous Information 1 ea NOTE XX ; Start 01/03/17 at 14:30 Glucose (Glutose) 15 gm Q15M PRN PO DECREASED GLUCOSE; Start 01/03/17 at 14:30 Glucose (Glutose) 22.5 gm Q15M PRN PO DECREASED GLUCOSE; Start 01/03/17 at 14: 30 Dextrose (D50w Syringe) 25 ml Q15M PRN IV DECREASED GLUCOSE; Start 01/03/17 at 14:30 Dextrose (D50w Syringe) 50 ml Q15M PRN IV DECREASED GLUCOSE; Start 01/03/17 at 14:30 Glucagon (Glucagen) 1 mg Q15M PRN IM DECREASED GLUCOSE; Start 01/03/17 at 14: 30 Glucose (Glutose) 15 gm Q15M PRN BUCCAL DECREASED GLUCOSE; Start 01/03/17 at 14:30 Diagnostic Test (Pha) (Accu-Chek) 1 ea 02 XX Last administered on 01/04/17t 03 :26; Admin Dose 1 EA; Start 01/04/17 at 02:00 Miscellaneous Information 1 ea NOTE XX ; Start 01/03/17 at 17:30 Glucose (Glutose) 15 gm Q15M PRN PO DECREASED GLUCOSE; Start 01/03/17 at 17:30 Glucose (Glutose) 22.5 gm Q15M PRN PO DECREASED GLUCOSE; Start 01/03/17 at 17: 30 Dextrose (D50w Syringe) 25 ml Q15M PRN IV DECREASED GLUCOSE; Start 01/03/17 at 17:30 Dextrose (D50w Syringe) 50 ml Q15M PRN IV DECREASED GLUCOSE; Start 01/03/17 at 17:30 Glucagon (Glucagen) 1 mg Q15M PRN IM DECREASED GLUCOSE; Start 01/03/17 at 17: 30 Glucose (Glutose) 15 gm Q15M PRN BUCCAL DECREASED GLUCOSE; Start 01/03/17 at 17:30 Ondansetron HCl (Zofran Inj) 4 mg Q6H PRN IV NAUSEA AND/OR VOMITING; Start at 18:30 Acetaminophen (Tylenol Tab) 650 mg Q6H PRN PO PAIN LEVEL 1-3 OR FEVER; Start 01/03/17 at 18:30 Docusate Sodium (Colace) 100 mg Q12H PRN PO CONSTIPATION; Start 01/03/17 at 18 :30 Bisacodyl (Dulcolax) 5 mg DAILY PRN PO CONSTIPATION; Start 01/03/17 at 18:30 Pantoprazole 40 mg 40 mg DAILY@06 PO Last administered on 01/04/17 06:53; Admin Dose 40 MG; Start 01/04/17 at 06:00 Dextrose/Sodium Chloride (D5-1/2ns) 1,000 ml @ 30 mls/hr Q24H IV Last administered on 01/04/17 13:51; Admin Dose 30 MLS/HR; Start 01/04/17 at 13:00 Procedures Procedures sr, poor R wave progression, non-specific st abn Gregory Arauz DO Jan 04, 2017 17:32
[2017-01-04] MEDS ORDERED: LIDOCAINE 1% (MPF) 30 ML INJ ONE (19:16)
[2017-01-04] MEDS ORDERED: BUPIVACAINE 0.25% (MPF) 30 ML INJ ONE (19:16)
[2017-01-04] MEDS ORDERED: GELATIN SIZE 100 SPONGE ONE (19:17)
[2017-01-04] MEDS ORDERED: THROMBIN 5000 UNIT VIAL ONE (19:17)
[2017-01-04] MEDS ORDERED: POLYMYXIN/BACITRACIN 1L IRRIG ONE (19:19)
--- NOTE | 2017-01-04 20:24 | HPN ---
Date/Time of Note Date/Time of Note DATE: 01/04/17 TIME: 20:24 Interval H&P Admission Note Pt. seen H&P reviewed: No system changes AN ROSADO MD Jan 04, 2017 20:24
[2017-01-04] MEDS ORDERED: FENTAnyl 50 MCG/ML VIAL ONE ×2 (20:27→20:38)
[2017-01-04] MEDS ORDERED: LIDOCAINE 2% (SDV) 5 ML INJ ONE (21:13)
[2017-01-04] MEDS ORDERED: CEFAZOLIN 1 GM INJ ONE (21:13)
[2017-01-04] MEDS ORDERED: ETOMIDATE 20 MG INJ ONE (21:13)
--- NOTE | 2017-01-04 21:13 | OPR ---
Date/Time of Note Date/Time of Note DATE: 01/04/17 TIME: 21:11 Operative Report Procedure Date: Jan 04, 2017 Preoperative Diagnosis Bleeding left upper extremity Postoperative Diagnosis Same Operation/Procedure Performed Exploration left arm control of bleeding Surgeon see signature line Lab Analyst None Anesthesia Type: general Estimated Blood Loss: minimal Transfusion none Specimen None Grafts/Implants none Tubes/Drains None Complications none Procedure Description Patient was taken to the operating after induction of general anesthesia prepped and draped in usual sterile fashion The arm was examined that appeared to be medial incision in the left arm which was oozing Incision was about 5 cm long Was open in the longitudinal fashion About 30 cc of old hematoma was evacuated from the Oozing from the soft tissues were noted Small branch of the brachial artery appeared to be also bleeding this was cauterized No evidence of any major bleeding was Hemostasis was achieved using electrocautery as well Restasis was also achieved using application of FloSeal No evidence of any major bleeding was noted Left upper extremity AV fistula was placed There was a palpable pulse in the radial artery no signs of ischemia Wound was irrigated using antibiotic solution The wound was closed using 2 layers of 2-0 Vicryl suture for the deep 2-0 Vicryl suture. Magen for the skin Patient tolerated procedure well The arm was wrapped using a cannula End of dictation AN ROSADO MD Jan 04, 2017 21:13
[2017-01-04] MEDS ORDERED: HYDROmorphONE (0.2 MG/ML) 10ML SYG IV ONE (21:49)
[2017-01-04] MEDS ORDERED: HYDROmorphONE (0.2 MG/ML) 10ML SYG IV PRN (22:00)
[2017-01-04] MEDS ORDERED: ONDANSETRON 4 MG INJ IV PRN (22:00)
[2017-01-04] MEDS: HYDROmorphONE (0.2 MG/ML) 10ML SYG IV PRN ×2 (22:33→22:41)
[2017-01-05] MEDS: ACCU-CHEK XX SCH ×3 (01:43→12:12)
[2017-01-05] MEDS: LEVOTHYROXINE 50 MCG TAB PO SCH (05:38)
[2017-01-05] MEDS: PANTOPRAZOLE (EC) 40 MG TAB PO SCH (05:38)
[2017-01-05] MEDS: SUCRALFATE 1 GM TAB PO SCH ×2 (05:38→12:12)
[2017-01-05 07:15] VITALS: BP 130/64; RESP 17
[2017-01-05] MEDS: INSULIN ASPART [NOVOLOG] 3 ML PEN SC SCH ×2 (08:00→12:00)
[2017-01-05] MEDS: SEVELAMER CARBONATE 0.8 GM PKT PO SCH ×2 (08:13→12:12)
[2017-01-05] MEDS: FUROSEMIDE 20 MG TAB PO SCH (08:14)
[2017-01-05] MEDS: GABAPENTIN 100 MG CAP PO SCH ×2 (08:14→12:12)
[2017-01-05] MEDS: FOLIC ACID 1 MG TAB PO SCH (08:15)
[2017-01-05] MEDS: PIOGLITAZONE 45 MG TAB PO SCH (08:15)
[2017-01-05] MEDS: LISINOPRIL 10 MG TAB PO SCH (08:15)
[2017-01-05] MEDS: AMLODIPINE 10 MG TAB PO SCH (08:15)
[2017-01-05] MEDS: CHOLECALCIFEROL 1,000 UNIT TAB PO SCH (08:30)
[2017-01-05] MEDS: DEXTROSE 5%-0.45% NACL 1,000 ML IV SCH (12:13)
--- NOTE | 2017-01-05 12:37 | PDOCDIS ---
Discharge Instructions CONDITION Patient Condition: Stable HOME CARE INSTRUCTIONS: Special Diet: ADA FOLLOW UP/APPOINTMENTS Follow-up Plan f/u dr hays [address] hennessy [address] smart 3 wks CAROL SMART MD Jan 05, 2017 12:37
[2017-01-05] MEDS ORDERED: BISA5TAB6 PO (12:43)
[2017-01-05] MEDS ORDERED: ACET325T40 PO (12:43)
[2017-01-05] MEDS ORDERED: DOCU-216 PO (12:43)
[2017-01-05] MEDS ORDERED: GABAPENTIN 100 MG CAP PO SCH (13:00)
--- NOTE | 2017-01-05 14:26 | CONS ---
Date/Time of Note Date/Time of Note DATE: 01/05/17 TIME: 14:25 Assessment/Plan Assessment/Plan Additional Assessment/Plan Recent AV fistula placement with postoperative bleeding status post exploration 01/04/2017 End-stage renal disease on hemodialysis Coronary artery disease Diabetes Hypertension Dyslipidemia -Patient is status post surgery for bleeding AV fistula. Denies any chest pain or shortness of breath. Restart aspirin when okay by our surgical colleagues. Fluid management via hemodialysis as per our nephrology colleagues. Consultation Date/Type/Reason Admit Date/Time Jan 03, 2017 at 04:04 Initial Consult Date Type of Consultation: cv 24 HR Interval Summary Free Text/Dictation Patient status post fistula procedure. Denies chest pain, shortness of breath Exam/Review of Systems Vital Signs Vitals Vital Signs Date Time Temp Pulse Resp B/P Pulse Ox O2 Delivery O2 Flow Rate FiO2 01/05/17 07:15 98.5 64 17 130/64 98 01/04/17 23:15 Nasal Cannula 2.0 Intake and Output 01/04/17 01/04/17 01/05/17 15:00 23:00 07:00 Intake Total 350 ml 1000 ml 640 ml Output Total 2025 ml Balance 350 ml -1025 ml 640 ml Exam No apparent distress, seen walking in the room Constitutional: alert, oriented Head: normocephalic Respiratory: other (Coarse breath sounds bilaterally, no wheezing) Cardiovascular: other (S1-S2 heard), regular rate and rhythm Gastrointestinal: bowel sounds, non-tender, soft Extremities: edema Results Result Diagram: 01/04/17 0426 01/04/17 0426 Results 24 hrs Laboratory Tests Test 01/04/17 17:33 01/04/17 21:25 01/05/17 02:37 01/05/17 08:12 Bedside Glucose 81 93 107 113 Test 01/05/17 12:10 Bedside Glucose 89 Medications Medications Current Medications Amlodipine Besylate (Norvasc) 10 mg DAILY PO Last administered on 01/05/17 08 :15; Admin Dose 10 MG; Start 01/03/17 at 14:00 Cholecalciferol (Vitamin D) 1,000 unit DAILY PO Last administered on 08:30; Admin Dose 1,000 UNIT; Start 01/04/17 at 09:00 Folic Acid (Folic Acid) 1 mg DAILY PO Last administered on 01/05/17 08:15; Admin Dose 1 MG; Start 01/04/17 at 09:00 Furosemide (Lasix) 20 mg DAILY PO Last administered on 01/05/17 08:14; Admin Dose 20 MG; Start 01/03/17 at 14:00 Lisinopril (Zestril) 10 mg DAILY PO Last administered on 01/05/17 08:15; Admin Dose 10 MG; Start 01/04/17 at 09:00 Pioglitazone HCl (Actos) 45 mg DAILY PO Last administered on 01/05/17 08:15; Admin Dose 45 MG; Start 01/04/17 at 09:00 Acetaminophen/ Hydrocodone Bitart ([place] (5/325)) 1 tab Q6H PRN PO Pain Last administered on 01/05/17 02:23; Admin Dose 1 TAB; Start 01/03/17 at 14:00 Miscellaneous Information 1 ea NOTE XX ; Start 01/03/17 at 14:30 Glucose (Glutose) 15 gm Q15M PRN PO DECREASED GLUCOSE; Start 01/03/17 at 14:30 Glucose (Glutose) 22.5 gm Q15M PRN PO DECREASED GLUCOSE; Start 01/03/17 at 14: 30 Dextrose (D50w Syringe) 25 ml Q15M PRN IV DECREASED GLUCOSE; Start 01/03/17 at 14:30 Dextrose (D50w Syringe) 50 ml Q15M PRN IV DECREASED GLUCOSE; Start 01/03/17 at 14:30 Glucagon (Glucagen) 1 mg Q15M PRN IM DECREASED GLUCOSE; Start 01/03/17 at 14: 30 Glucose (Glutose) 15 gm Q15M PRN BUCCAL DECREASED GLUCOSE; Start 01/03/17 at 14:30 Diagnostic Test (Pha) (Accu-Chek) 1 ea 02 XX Last administered on 01/04/17 03 :26; Admin Dose 1 EA; Start 01/04/17 at 02:00 Ondansetron HCl (Zofran Inj) 4 mg Q6H PRN IV NAUSEA AND/OR VOMITING Last administered on 01/04/17 22:41; Admin Dose 4 MG; Start 01/03/17 at 18:30 Acetaminophen (Tylenol Tab) 650 mg Q6H PRN PO PAIN LEVEL 1-3 OR FEVER; Start 01/03/17 at 18:30 Docusate Sodium (Colace) 100 mg Q12H PRN PO CONSTIPATION; Start 01/03/17 at 18 :30 Bisacodyl (Dulcolax) 5 mg DAILY PRN PO CONSTIPATION; Start 01/03/17 at 18:30 Pantoprazole 40 mg 40 mg DAILY@06 PO Last administered on 01/05/17 05:38; Admin Dose 40 MG; Start 01/04/17 at 06:00 Dextrose/Sodium Chloride (D5-1/2ns) 1,000 ml @ 30 mls/hr Q24H IV Last administered on 01/04/17 13:51; Admin Dose 30 MLS/HR; Start 01/04/17 at 13:00 Gabapentin (Neurontin) 150 mg TID PO ; Start 01/05/17 at 13:00; Status Gregory Loyd DO Jan 05, 2017 14:26
--- NOTE | 2017-01-05 15:14 | RADRPT ---
Vent Rate: 62 bpm RR Interval: 0 msec WV Interval: 182 msec QRS Duration: 82 msec QT Interval: 404 msec QTC Interval: 410 msec P-R-T [place]: 14 - 19 - 21 degrees Normal sinus rhythm Low voltage QRS Cannot rule out Anterior infarct , age undetermined Abnormal ECG Electronically Signed By: Gregory Arauz [id number]
--- NOTE | 2017-01-05 16:07 | PN ---
Date/Time of Note Date/Time of Note DATE: 01/05/17 TIME: 16:05 Assessment/Plan VTE Prophylaxis VTE Prophylaxis Intervention: other Lines/Catheters IV [facility]ter Type [facility] Peripheral IV Urinary Cath still in place: No Assessment/Plan Chief Complaint/Hosp Course IMPRESSION: 1. Arteriovenous fistula bleeding, stopped.s/p avf repair 2. End-stage renal disease. 3. Diabetes mellitus. 4. The patient with anemia. 5. Arteriovenous fistula, status post left arm arteriovenous fistula basilic vein transposition. 6 cad plan home Problems: Subjective 24 Hr Interval Summary Subjective hx not possible: other (s/p avf repair) Cardiovascular: no complaints Exam/Review of Systems Vital Signs Vitals Vital Signs Date Time Temp Pulse Resp B/P Pulse Ox O2 Delivery O2 Flow Rate FiO2 01/05/17 07:15 98.5 64 17 130/64 98 01/04/17 23:15 Nasal Cannula 2.0 Intake and Output 01/04/17 01/04/17 01/05/17 14:59 22:59 06:59 Intake Total 350 ml 1000 ml 280 ml Output Total 2025 ml Balance 350 ml -1025 ml 280 ml Exam ENMT: nl external ears & nose Neck: supple Respiratory: clear to auscultation Cardiovascular: regular rate and rhythm Gastrointestinal: soft Genitourinary - Female: nl adnexae Musculoskeletal: nl extremities to inspection Results Result Diagram: 01/04/1742501/04/17425 Results 24 hrs Laboratory Tests Test 01/04/17 17:33 01/04/17 21:25 01/05/17 02:37 01/05/17 08:12 Bedside Glucose 81 93 107 113 Test 01/05/17 12:10 Bedside Glucose 89 Medications Medications Current Medications Amlodipine Besylate (Norvasc) 10 mg DAILY PO Last administered on 01/05/17 08 :15; Admin Dose 10 MG; Start 01/03/17 at 14:00 Cholecalciferol (Vitamin D) 1,000 unit DAILY PO Last administered on 08:30; Admin Dose 1,000 UNIT; Start 01/04/17 at 09:00 Folic Acid (Folic Acid) 1 mg DAILY PO Last administered on 01/05/17 08:15; Admin Dose 1 MG; Start 01/04/17 at 09:00 Furosemide (Lasix) 20 mg DAILY PO Last administered on 01/05/17 08:14; Admin Dose 20 MG; Start 01/03/17 at 14:00 Lisinopril (Zestril) 10 mg DAILY PO Last administered on 01/05/17 08:15; Admin Dose 10 MG; Start 01/04/17 at 09:00 Pioglitazone HCl (Actos) 45 mg DAILY PO Last administered on 01/05/17 08:15; Admin Dose 45 MG; Start 01/04/17 at 09:00 Acetaminophen/ Hydrocodone Bitart ([place] (5/325)) 1 tab Q6H PRN PO Pain Last administered on 01/05/17 02:23; Admin Dose 1 TAB; Start 01/03/17 at 14:00 Miscellaneous Information 1 ea NOTE XX ; Start 01/03/17 at 14:30 Glucose (Glutose) 15 gm Q15M PRN PO DECREASED GLUCOSE; Start 01/03/17 at 14:30 Glucose (Glutose) 22.5 gm Q15M PRN PO DECREASED GLUCOSE; Start 01/03/17 at 14: 30 Dextrose (D50w Syringe) 25 ml Q15M PRN IV DECREASED GLUCOSE; Start 01/03/17 at 14:30 Dextrose (D50w Syringe) 50 ml Q15M PRN IV DECREASED GLUCOSE; Start 01/03/17 at 14:30 Glucagon (Glucagen) 1 mg Q15M PRN IM DECREASED GLUCOSE; Start 01/03/17 at 14: 30 Glucose (Glutose) 15 gm Q15M PRN BUCCAL DECREASED GLUCOSE; Start 01/03/17 at 14:30 Diagnostic Test (Pha) (Accu-Chek) 1 ea 02 XX Last administered on 01/04/17 03 :26; Admin Dose 1 EA; Start 01/04/17 at 02:00 Ondansetron HCl (Zofran Inj) 4 mg Q6H PRN IV NAUSEA AND/OR VOMITING Last administered on 01/04/17 22:41; Admin Dose 4 MG; Start 01/03/17 at 18:30 Acetaminophen (Tylenol Tab) 650 mg Q6H PRN PO PAIN LEVEL 1-3 OR FEVER; Start 01/03/17 at 18:30 Docusate Sodium (Colace) 100 mg Q12H PRN PO CONSTIPATION; Start 01/03/17 at 18 :30 Bisacodyl (Dulcolax) 5 mg DAILY PRN PO CONSTIPATION; Start 01/03/17 at 18:30 Pantoprazole 40 mg 40 mg DAILY@06 PO Last administered on 01/05/17 05:38; Admin Dose 40 MG; Start 01/04/17 at 06:00 Dextrose/Sodium Chloride (D5-1/2ns) 1,000 ml @ 30 mls/hr Q24H IV Last administered on 01/04/17 13:51; Admin Dose 30 MLS/HR; Start 01/04/17 at 13:00 Gabapentin (Neurontin) 100 mg TID PO ; Start 01/05/17 at 13:00 CAROL SMART MD Jan 05, 2017 16:07
== END 2017-01-05 14:00 | disposition home or self-care (01) ==
LOC: E/R 21:18 → MS3 01-03 04:04 → PP2 01-04 21:50
PROVIDERS: ADMIT Internal Medicine Nephrology; ATTEND Internal Medicine Nephrology
DX: T82.838A Hemorrhage due to vascular prosthetic devices, implants and grafts, initial encounter (principal); Y84.1 Kidney dialysis as the cause of abnormal reaction of the patient, or of later complication, without mention of misadventure at the time of the procedure; I12.0 Hypertensive chronic kidney disease with stage 5 chronic kidney disease or end stage renal disease; N18.6 End stage renal disease; I25.10 Atherosclerotic heart disease of native coronary artery without angina pectoris; E11.21 Type 2 diabetes mellitus with diabetic nephropathy; E11.319 Type 2 diabetes mellitus with unspecified diabetic retinopathy without macular edema; E11.610 Type 2 diabetes mellitus with diabetic neuropathic arthropathy; E78.5 Hyperlipidemia, unspecified; D64.9 Anemia, unspecified; Z88.0 Allergy status to penicillin; Z88.2 Allergy status to sulfonamides; Z79.82 Long term (current) use of aspirin
CPT/HCPCS: 35860; 80048; 80053; 82962; 85025; 85610; 85730; 86850; 86900; 86901; 90935; 93005; C1725; G0378; J0690; J1170; J1815; J2270; J2405; J3010; J7042

== ENCOUNTER 2017-05-19 11:55 | Inpatient (IN) | END 2017-06-09 20:30 | DRG 246 ==

== ENCOUNTER 2017-06-09 21:47 | Inpatient (IN) | END 2017-06-29 14:00 | disposition home health service (06) | DRG 73 ==